=== PATIENT | male | born 1970 | race Caucasian/White ===

== ENCOUNTER 2020-05-22 18:06 | Emergency (ER) | payer OTHER ==
[2020-05-22 22:20] LABS: HEMOGLOBIN 17.8 gm/dl (14.0-17.5); RED BLOOD COUNT 5.96 M/UL (4.20-5.50); WHITE BLOOD COUNT 13.1 K/UL (4.5-11.0)
[2020-05-22 22:31] LABS: BUN/CREATININE RATIO 21 (0-10)
== END 2020-05-22 23:59 | disposition home or self-care (01) ==
LOC: ER1 18:06
PROVIDERS: Physician Assistant
DX: L02.415 Cutaneous abscess of right lower limb (principal); F17.200 Nicotine dependence, unspecified, uncomplicated; Z88.0 Allergy status to penicillin; Z79.899 Other long term (current) drug therapy
CPT/HCPCS: 80048; 83605; 85025; 87040; 99283